=== PATIENT | female | born 1975 | race Caucasian/White ===

== ENCOUNTER 2022-01-25 22:24 | Emergency (ER) | payer OTHER ==
[~2022-01-25] VITALS: Ht 170.2 cm; Wt 70.3 kg
[2022-01-25 23:07] VITALS: BP 129/86
--- NOTE | 2022-01-25 23:19 | NUR ---
SEEN IN TRIAGE BY DR PATHAK AND DISCHARGED.
== END 2022-01-25 23:19 | disposition home or self-care (01) ==
LOC: MED 22:24
DX: D17.24 Benign lipomatous neoplasm of skin and subcutaneous tissue of left leg (principal); D17.39 Benign lipomatous neoplasm of skin and subcutaneous tissue of other sites
CPT/HCPCS: 99281